=== PATIENT | female | born 2000 | race Caucasian/White ===

== ENCOUNTER 2022-05-26 08:30 | Outpatient (CLI) | payer OTHER, SELFPAY ==
--- NOTE | ~2022-05-26 | US_ITS ---
EXAMINATION: US breast BI complete HISTORY: Diffuse bilateral breast pain TECHNIQUE: Complete bilateral breast ultrasound including all four quadrants and the subareolar aspec ts of both breasts is performed. FINDINGS: No sonographic correlate is identified for the patient's reported breast pain. There is no suspicious cystic or solid mass. IMPRESSION: No specific sonographic correlate is identified for the patient's reported breast pain. Further evalu ation at this time should be based on clinical assessment. Continued follow-up physical examination i s recommended. BI-RADS Category 1: Negative Reviewed, dictated and finalized at location A. IMPRESSION: No specific sonographic correlate is identified for the patient's reported [address] pain. Further evaluation at this time should be based on clinical assessment . Continued follow-up physical examination is recommended. BI-RADS Category 1: Negative
== END 2022-05-26 08:31 ==
LOC: MICIMG 08:32
PROVIDERS: PCP Physician Assistant; Visit Provider Physician Assistant
DX: N64.4 Mastodynia (principal)
CPT/HCPCS: 76641